=== PATIENT | male | born 1985 | race Caucasian/White ===

== ENCOUNTER 2020-08-04 08:16 | Emergency (ER) | payer MEDICAID ==
[~2020-08-04] VITALS: Ht 180.3 cm; Wt 86.2 kg
[2020-08-04 08:20] VITALS: BP 126/67
[2020-08-04] MEDS ORDERED: ACETAMINOPHEN 325 MG TABLET ONE (08:35)
[2020-08-04] MEDS: ACETAMINOPHEN 325 MG TABLET PO ONE (08:42)
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
--- NOTE | 2020-08-04 08:47 | NUR ---
PT RELEASED UNDER THE CARE [employer] AND MEDICALLY CLEARED FOR BOOKING. PT IS AMBULATORY ON STEADY GAIT.
== END 2020-08-04 08:49 ==
LOC: ER 08:24
DX: Z02.89 Encounter for other administrative examinations (principal); Z77.098 Contact with and (suspected) exposure to other hazardous, chiefly nonmedicinal, chemicals; F20.9 Schizophrenia, unspecified; Z88.0 Allergy status to penicillin